=== PATIENT | female | born 1985 | race African-American/Black ===

== ENCOUNTER 2017-06-10 10:11 | Emergency (ER) | payer MEDICAID ==
--- NOTE | 2017-06-10 10:22 | ER Document Report ---
ED GI/ - General Chief Complaint: Abdominal Pain Stated Complaint: ABDOMINAL PAIN Time Seen by Provider: 06/10/17 10:20 Mode of Arrival: Ambulatory Information source: Patient Notes: 31-year-old female complaining of left-sided abdominal pain either upper or lower intermittently since , 3.5/5 now. She found out recently that she was at [facility].. LMP second week of April. . No vomiting or diarrhea today. No fever. No dysuria. No vaginal bleeding. States that she has more heartburn with this than her other 3. TRAVEL OUTSIDE OF THE [place] 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 Renal/ Medical History: Denies: Hx Peritoneal Dialysis Past Surgical History: Reports: Hx Section - x 1 Review of Systems - Review of Systems Constitutional: No symptoms reported EENT: No symptoms reported Cardiovascular: No symptoms reported Respiratory: No symptoms reported Gastrointestinal: See HPI Genitourinary: No symptoms reported Female Genitourinary: No symptoms reported Musculoskeletal: No symptoms reported Skin: No symptoms reported Hematologic/Lymphatic: No symptoms reported Neurological/Psychological: No symptoms reported Physical Exam - Vital signs Vitals: Temp Pulse Resp BP Pulse Ox 97.9 F 89 18 140/79 H 96 06/10/17 10:15 06/10/17 10:15 06/10/17 10:15 06/10/17 10:15 06/10/17 10:15 Interpretation: Normal - General General appearance: Appears well, Alert - HEENT Head: Normocephalic, Atraumatic Eyes: Normal Conjunctiva: Normal Pupils: PERRL Mucous membranes: Normal Neck: Supple. No: Lymphadenopathy - Respiratory Respiratory status: No respiratory distress Chest status: Nontender Breath sounds: Normal Chest palpation: Normal - Cardiovascular Rhythm: Regular Heart sounds: Normal auscultation Murmur: No - Abdominal Inspection: Normal Distension: No distension Bowel sounds: Normal Tenderness: Nontender. No: Tender Organomegaly: No organomegaly. No: Hepatomegaly, Splenomegaly - Back Back: Normal, Nontender. No: CVA tenderness - Extremities General upper extremity: Normal inspection, Nontender, Normal color, Normal ROM , Normal temperature General lower extremity: Normal inspection, Nontender, Normal color, Normal ROM , Normal temperature, Normal weight bearing. No: Juan Pablo's sign - Neurological Neuro grossly intact: Yes Cognition: Normal Orientation: AAOx4 [place] Coma Scale Eye Opening: Spontaneous Liliane Coma Scale Verbal: Oriented Liliane Coma Scale Motor: Obeys Commands [place] Coma Scale Total: 15 Speech: Normal Motor strength normal: LUE, RUE, LLE, RLE Sensory: Normal - Psychological Associated symptoms: Normal affect, Normal mood - Skin Skin Temperature: Warm Skin Moisture: Dry Skin Color: Normal Skin irregularity: negative: Rash Course - Re-evaluation Re-evalutation: 06/10/17 12:31 no pelvic or abdominal pain, nausea gone with the reglan. manual bp 103/57 06/10/17 12:31 06/10/17 12:32 - Vital Signs Vital signs: Temp Pulse Resp BP Pulse Ox 97.9 F 89 18 103/57 L 96 06/10/17 10:15 06/10/17 10:15 06/10/17 10:15 06/10/17 10:53 06/10/17 10:15 - Laboratory Result Diagrams: 06/10/17 10:45 06/10/17 10:45 Laboratory results interpreted by me: 06/10/17 06/10/17 10:45 10:45 RDW 15.4 H Beta HCG, Quant 421315.00 H Discharge - Discharge Clinical Impression: Nausea, Early stage of , Resolved abdominal pain Condition: Good Disposition: HOME, SELF-CARE Instructions: Abdominal Pain ([facility]), ([facility]), Pelvic Pain in ( [facility]), Nausea or Vomiting, Nonspecific ([facility]), [facility] ([facility]) , [facility] [place] Additional Instructions: return to er if any concerns, vaginal bleeding, pelvic pain reglan can be taken for the nausea see the health department Please complete the patient satisfaction survey if you get one, and return it.. If you do not receive a survey, then you can go to the [facility] website, [email or web address] and place your comments about your very good care. Thank you very much. It was a pleasure being your medical provider today. Prescriptions: Metoclopramide HCl [Reglan 10 mg Tablet] 10 mg PO QIDP PRN #30 tablet PRN Reason:
[2017-06-10 10:54] VITALS: BP 103/57
[2017-06-10 11:03] LABS: AMORPHOUS SEDIMENT,URINE TRACE /HPF; APPEARANCE,URINE SLIGHTLY-CLOUDY; BILIRUBIN,URINE NEGATIVE (NEGATIVE); GLUCOSE, URINE NEGATIVE (NEGATIVE); KETONES,URINE NEGATIVE (NEGATIVE); LEUKOCYTE ESTERASE,URINE NEGATIVE (NEGATIVE); NITRITE,URINE NEGATIVE (NEGATIVE); PROTEIN,URINE NEGATIVE (NEGATIVE); URINE SPECIFIC GRAVITY 1.024; UROBILINOGEN,URINE NEGATIVE mg/dL (<2.0)
[2017-06-10] MEDS ORDERED: METOCLOPRAMIDE HCL 10 MG TABLET PO ONE (11:09)
[2017-06-10 11:10] LABS: ABSOLUTE BASOPHILS # (AUTO) 0.1 10^3/uL (0.0-0.2); ABSOLUTE EOSINOPHILS # (AUTO) 0.1 10^3/uL (0.0-0.6); ABSOLUTE LYMPHOCYTES (AUTO) 1.7 10^3/uL (0.5-4.7); ABSOLUTE MONOCYTES (AUTO) 0.8 10^3/uL (0.1-1.4); ABSOLUTE NEUT (AUTO) 4.5 10^3/uL (1.7-8.2); BASOPHILS % (AUTO) 0.9 % (0-2); EOSINOPHILS % (AUTO) 1.6 % (0-6); HEMATOCRIT 39.2 % (36.0-47.0); HEMOGLOBIN 13.2 g/dL (12.0-15.5); HGB HCT DIFFERENCE 0.4; LYMPHOCYTES % (AUTO) 23.8 % (13-45); MEAN CORPUSCULAR HEMOGLOBIN 28.2 pg (27.0-33.4); MEAN CORPUSCULAR HGB CONC 33.8 g/dL (32.0-36.0); MEAN CORPUSCULAR VOLUME 84 fl (80-97); MONOCYTES % (AUTO) 10.7 % (3-13); RED BLOOD COUNT 4.69 10^6/uL (3.72-5.28); RED CELL DISTRIBUTION WIDTH 15.4 % (11.5-14.0); WHITE BLOOD COUNT 7.1 10^3/uL (4.0-10.5)
[2017-06-10 11:15] LABS: ALANINE AMINOTRANSFERASE 24 U/L (9-52); ALBUMIN 4.1 g/dL (3.5-5.0); ALKALINE PHOSPHATASE 62 U/L (38-126); ANION GAP 12 (5-19); ASPARTATE AMINO TRANSFERASE 19 U/L (14-36); BILIRUBIN,DIRECT 0.3 mg/dL (0.0-0.4); BILIRUBIN,TOTAL 0.6 mg/dL (0.2-1.3); BLOOD UREA NITROGEN 8 mg/dL (7-20); CARBON DIOXIDE 22 mmol/L (22-30); CHLORIDE 105 mmol/L (98-107); CREATININE RESULT 0.65 mg/dL (0.52-1.25); GLUCOSE 93 mg/dL (75-110); LIPASE 34.5 U/L (23-300); POTASSIUM 3.9 mmol/L (3.6-5.0); SODIUM 138.5 mmol/L (137-145)
== END 2017-06-10 12:53 | disposition home or self-care (01) ==
LOC: ER 10:11
DX: R11.0 Nausea (principal); R10.9 Unspecified abdominal pain; Z3A.00 Weeks of gestation of pregnancy not specified
CPT/HCPCS: 99284; 36415; 87086; 84702; 83690; 85025; 87088; 80053; 81001; 87186; J3490

== ENCOUNTER 2017-07-09 19:49 | Emergency (ER) | payer MEDICAID ==
[2017-07-09] MEDS ORDERED: ONDANSETRON HCL INJ/PF 4 MG/2 ML SDV IV ONE ×2 (20:10→21:58)
[2017-07-09] MEDS ORDERED: MORPHINE SULFATE 10 MG/ML INJ IV ONE ×2 (20:10→21:58)
--- NOTE | 2017-07-09 20:13 | ER Document Report ---
ED GI/ - General Chief Complaint: Vaginal Bleeding Stated Complaint: VAGINAL BLEEDING Time Seen by Provider: 07/09/17 20:05 Notes: Patient is a 31-year-old female, at 8 weeks gestation by last menstrual period, but comes emergency department for chief complaint of heavy vaginal bleeding that started just prior to arrival. She has now passed a large amount of tissue. She reports cramping, she denies dizziness or lightheadedness. She denies passing out. She is not on any daily medications. [facility] but has not had an ultrasound yet. TRAVEL OUTSIDE OF THE [place] IN LAST 30 DAYS: No - Related Data Allergies/Adverse Reactions: blueberry Allergy (Verified 07/09/17 21:19) pollen extracts Allergy (Verified 07/09/17 21:19) Home Medications: Current Home Medications No122/Iron/Folic Acid [ Multi Tablet] 1 each PO DAILY 07/09/17 [History] Past Medical History - General Information source: Patient - Social History Smoking Status: Never Smoker Frequency of alcohol use: None Drug Abuse: None Lives with: Family Family History: Reviewed & Not Pertinent - Medical History Medical History: Negative Renal/ Medical History: Denies: Hx Peritoneal Dialysis Past Surgical History: Reports: Hx Section - x 1 - Immunizations Hx Diphtheria, Pertussis, Tetanus Vaccination: Yes Review of Systems - Review of Systems Constitutional: No symptoms reported EENT: No symptoms reported Cardiovascular: See HPI Respiratory: No symptoms reported Gastrointestinal: No symptoms reported Genitourinary: No symptoms reported Female Genitourinary: See HPI Musculoskeletal: No symptoms reported Skin: No symptoms reported Hematologic/Lymphatic: No symptoms reported Neurological/Psychological: No symptoms reported Physical Exam - Vital signs Vitals: Temp Pulse Resp BP Pulse Ox 98.1 F 93 16 141/91 H 99 07/09/17 19:56 07/09/17 19:56 07/09/17 19:56 07/09/17 19:56 07/09/17 19:56 Interpretation: Normal - General General appearance: Appears well, Alert In distress: None - HEENT Head: Normocephalic, Atraumatic Eyes: Normal Pupils: PERRL - Respiratory Respiratory status: No respiratory distress Chest status: Nontender Breath sounds: Normal Chest palpation: Normal - Cardiovascular Rhythm: Regular. No: Tachycardia Heart sounds: Normal auscultation, S1 appreciated, S2 appreciated Murmur: No - Abdominal Inspection: Normal Distension: No distension Bowel sounds: Normal Tenderness: Nontender. No: Tender, Guarding Organomegaly: No organomegaly - Genitourinary External exam: Normal Speculum exam: Cervix open, Products of conception Vaginal bleeding: Heavy - Back Back: Normal, Nontender - Extremities General upper extremity: Normal inspection, Nontender, Normal color, Normal ROM , Normal temperature General lower extremity: Normal inspection, Nontender, Normal color, Normal ROM , Normal temperature, Normal weight bearing. No: Juan Pablo's sign - Neurological Neuro grossly intact: Yes Cognition: Normal Orientation: AAOx4 Liliane Coma Scale Eye Opening: Spontaneous [place] Coma Scale Verbal: Oriented [place] Coma Scale Motor: Obeys Commands Liliane Coma Scale Total: 15 Speech: Normal Motor strength normal: LUE, RUE, LLE, RLE Sensory: Normal - Psychological Associated symptoms: Normal affect, Normal mood - Skin Skin Temperature: Warm Skin Moisture: Dry Skin Color: Normal Course - Re-evaluation Re-evalutation: On initial evaluation patient is alert and well-appearing but she is bleeding heavily and she passed a large amount of tissue on the bed and on the floor. I did not see any tissue in the initial tissue passage. Patient is not tachycardic. Hemoglobin checked, it is decreased from prior but is still stable. Patient was given initial pain medication, this appeared to help her significantly. On reevaluation discussed with patient, requested more pain medication. This was given to her. RhoGam is not indicated. HCG has significantly downtrending consistent with miscarriage. Unfortunately patient stood up on her own randomly after being given pain medication doses, she did become pale, she slumped down onto the floor, I ran into and caught her and she did not hit her head, she slumped onto her buttocks on the floor. She quickly regained consciousness on her own, she was placed on the bed, she was given IV fluid boluses. She was mildly hypotensive at the time of syncope. Blood pressure has returned to normal, patient has returned to her normal alert self on reevaluation. Pelvic exam was performed, tissue was removed from the vaginal vault questionable for fetus. No additional debris was located in the cervix, cervix open. Afterwards bleeding did significantly decrease. I discussed with patient , patient states that she does not want any tissue testing performed, unfortunately passed products and blood products were placed in the same been and I was unable to locate what had appeared to be the fetus initially, after a search patient states she does not want this and declined additional testing or searching. I called and spoke with Dr. Winn, [facility] on-call, he recommends patient can be discharged home at this time with return precautions and close follow-up recommendations. I discussed this with patient, she states that she definitely is ready to leave, she states she will return if she worsens in any way. - Vital Signs Vital signs: Temp Pulse Resp BP Pulse Ox 98.1 F 88 20 106/58 L 98 07/09/17 21:34 07/10/17 01:45 07/10/17 01:45 07/10/17 00:31 07/10/17 01:45 - Laboratory Result Diagrams: 07/09/17 20:45 Laboratory results interpreted by me: 07/09/17 07/09/17 20:45 20:45 Hct 35.7 L RDW 14.8 H Beta HCG, Quant 1238.80 H Discharge - Discharge Clinical Impression: Miscarriage Condition: Stable Disposition: HOME, SELF-CARE Additional Instructions: Your exam and laboratory workup indicates a miscarriage. It appears you have passed the fetus here tonight. You will have some additional bleeding and cramping at home to complete the miscarriage. Take the pain medication if needed. I have spoken with Dr. Winn ([facility] Eugenia garcia). Follow up with [facility] tomorrow (call the office tomorrow morning). Return to the ED for any concerning symptoms - dizziness, passing out, severe pain, etc. Prescriptions: Morphine Sulfate [Morphine Ir 15 Mg Tablet] 15 mg PO Q4HP PRN #10 tablet PRN Reason: Forms: Return to Work Referrals: ADELFO WINN MD [ACTIVE STAFF] - Follow up tomorrow
[2017-07-09 21:02] LABS: ABSOLUTE EOSINOPHILS # (AUTO) 0.2 10^3/uL (0.0-0.6); ABSOLUTE LYMPHOCYTES (AUTO) 1.8 10^3/uL (0.5-4.7); ABSOLUTE MONOCYTES (AUTO) 0.7 10^3/uL (0.1-1.4); ABSOLUTE NEUT (AUTO) 3.2 10^3/uL (1.7-8.2); BASOPHILS % (AUTO) 0.8 % (0-2); EOSINOPHILS % (AUTO) 2.9 % (0-6); HEMATOCRIT 35.7 % (36.0-47.0); HGB HCT DIFFERENCE 0.3; LYMPHOCYTES % (AUTO) 30.2 % (13-45); MEAN CORPUSCULAR HGB CONC 33.7 g/dL (32.0-36.0); MEAN CORPUSCULAR VOLUME 83 fl (80-97); MONOCYTES % (AUTO) 11.3 % (3-13); RED BLOOD COUNT 4.29 10^6/uL (3.72-5.28); RED CELL DISTRIBUTION WIDTH 14.8 % (11.5-14.0); SEGMENTED NEUTROPHILS % (AUTO) 54.8 % (42-78); WHITE BLOOD COUNT 5.9 10^3/uL (4.0-10.5)
[2017-07-09] MEDS ORDERED: NORMAL SALINE 1000 ML 1,000 ML IV ONE ×2 (22:42→23:04)
[2017-07-10] MEDS ORDERED: HYDROCODONE/ACETAMINOPHEN 5-325 MG 6 TAB/DSPK PO PRN (01:05)
[2017-07-10 01:45] VITALS: BP 106/58
== END 2017-07-10 01:45 | disposition home or self-care (01) ==
LOC: ER 19:49
DX: O03.9 Complete or unspecified spontaneous abortion without complication (principal); O46.91 Antepartum hemorrhage, unspecified, first trimester; R10.9 Unspecified abdominal pain; R10.2 Pelvic and perineal pain; Z3A.08 8 weeks gestation of pregnancy
CPT/HCPCS: 96376; 99284; 96361; 96374; 96375; 86900; 86901; 36415; 86850; 84702; 85025; J2270; J2405; J7030

== ENCOUNTER → 2018-07-03 | Outpatient (CLI) | payer MEDICAID ==
--- NOTE | 2018-07-03 15:56 | RADIOLOGY REPORT (SQ) ---
EXAM DESCRIPTION: U/S [id number] TRNABD 1GES W/ODOP COMPLETED DATE/TIME: 07/03/2018 3:30 pm REASON FOR STUDY: Z34.81 ENCOUNTER FOR SUPRVSN OF NORMAL , FIRST TRIMESTER Z34.81 ENCOUNTE R FOR SUPRVSN OF NORMAL , FIRST TRIM COMPARISON: None. TECHNIQUE: Transabdominal static and realtime grayscale images acquired of the pelvis. Additional se lected spectral and color Doppler images recorded. All images stored on PACs. bHCG: Not available CLINICAL DATES: Last menses 05/15/2018 LIMITATIONS: None. FINDINGS: FETUS: Single Living intrauterine . ULTRASOUND EGA: 9 weeks 4 days ULTRASOUND PETERSON: 02/01/2019 EFW: Not applicable less than 20 weeks. CRL: 2.7 cm generates an estimated age of 9 weeks 4 days FHR: 165 beats per minute. SURVEY: Too early to assess. AMNIOTIC FLUID: Adequate amount. PLACENTA: Not yet developed due to early gestation. SUBCHORIONIC BLEED: No SIZE OF BLEED: Not applicable. UTERUS: No masses. No anomalies. Uterus is 9.4 x 5.4 x 6.4 cm CERVICAL LENGTH: Closed, 4.8 cm in length RIGHT ADNEXA: Not visualized due to bowel gas/poor acoustic window LEFT ADNEXA: Not visualized due to bowel gas/poor acoustic window FREE FLUID: None. OTHER: No other significant finding. IMPRESSION: LIVING INTRAUTERINE . EGA 9 weeks 4 days, estimated due date 02/01/2019 Trimester of : First - 0 to 13 weeks. TECHNICAL DOCUMENTATION: JOB ID: [id number] [employer]- All Rights Reserved Reading location - IP/workstation name: [facility]
== END ==
LOC: RAD 16:34
PROVIDERS: ATTEND Nurse Practitioner
DX: Z34.81 Encounter for supervision of other normal pregnancy, first trimester (principal)
CPT/HCPCS: 76801

== ENCOUNTER 2019-01-27 15:07 | Outpatient (CLI) | payer MEDICAID ==
[2019-01-27 16:15] LABS: APPEARANCE,URINE SLIGHTLY-CLOUDY; BILIRUBIN,URINE NEGATIVE (NEGATIVE); COLOR,URINE YELLOW; GLUCOSE, URINE NEGATIVE (NEGATIVE); KETONES,URINE NEGATIVE (NEGATIVE); LEUKOCYTE ESTERASE,URINE NEGATIVE (NEGATIVE); NITRITE,URINE NEGATIVE (NEGATIVE); PROTEIN,URINE NEGATIVE (NEGATIVE); UROBILINOGEN,URINE NEGATIVE mg/dL (<2.0)
--- NOTE | 2019-01-27 16:25 | Non Stress Test Report ---
Non Stress Test Datetime Report Generated by CPN: 01/27/2019 16:25 DEMOGRAPHIC EGA NST: 40.0 INDICATION Indication for Study: Ordered by Provider URINE RESULTS Urine Protein, NST: Negative Urine Blood - NST: Positive MONITORING Monitor Explained: Monitor Explained; Test Explained; Patient Verbalized Understanding Time on Monitor: 01/27/2019 15:28 Time off Monitor: 01/27/2019 16:18 NST Duration: 50 NST INTERVENTIONS NST Interventions: PO Hydration Physician Notified NST: Dr. Agusto BABY A: [id number] BABY A Movement : Present Contraction Frequency : 4-13 FHR Baseline : 130 Accelerations : 15X15 Decelerations : None Variability : Moderate 6-25bpm NST Review: Meets Criteria for Reactive NST NST Review and Verified By : PANKAJ Vázquez NST Results: Reactive NST REPORT Report Trigger: Send Report
[2019-01-27 16:30] LABS: URINE AMPHETAMINES SCREEN NEGATIVE; URINE BARBITURATES SCREEN NEGATIVE; URINE BENZODIAZEPINES SCREEN NEGATIVE; URINE COCAINE SCREEN NEGATIVE; URINE MARIJUANA (THC) SCREEN NEGATIVE; URINE METHADONE SCREEN NEGATIVE; URINE PHENCYCLIDINE SCREEN NEGATIVE
== END 2019-01-27 16:28 | disposition home or self-care (01) ==
LOC: LC 15:07
PROVIDERS: ATTEND Obstetrics & Gynecology
PROC: 4A1HXCZ Monitoring of Products of Conception, Cardiac Rate, External Approach (ICD-10-PCS; principal; 2019-01-27)
DX: O47.1 False labor at or after 37 completed weeks of gestation (principal); Z3A.40 40 weeks gestation of pregnancy
CPT/HCPCS: 59025; 80307; 81005

== ENCOUNTER 2019-02-03 21:41 | Inpatient (IN) | payer MEDICAID ==
[2019-02-03 22:14] LABS: APPEARANCE,URINE TURBID; BILIRUBIN,URINE NEGATIVE (NEGATIVE); GLUCOSE, URINE NEGATIVE (NEGATIVE); KETONES,URINE NEGATIVE (NEGATIVE); LEUKOCYTE ESTERASE,URINE TRACE (NEGATIVE); NITRITE,URINE NEGATIVE (NEGATIVE); PROTEIN,URINE 100 mg/dL (NEGATIVE); URINE SPECIFIC GRAVITY 1.013; UROBILINOGEN,URINE NEGATIVE mg/dL (<2.0)
[2019-02-03 22:16] LABS: COLOR,URINE YELLOW
[2019-02-03] MEDS ORDERED: OXYTOCIN/NORMAL SALINE 20 UNIT/1,000 ML RTUINJ IV PRN (22:18)
[2019-02-03] MEDS ORDERED: MISOPROSTOL 0.2 MG TABLET ONE (22:30)
[2019-02-03] MEDS ORDERED: OXYTOCIN 10 UNIT/ML VIAL ONE (22:30)
[2019-02-03] MEDS ORDERED: OXYTOCIN/NORMAL SALINE 0 UNIT/0 ML RTUINJ ONE (22:31)
[2019-02-03] MEDS ORDERED: LIDOCAINE 1% INJ-PF (10 MG/ML) 30 ML SDV ONE (22:31)
[2019-02-03] MEDS: RINGERS SOLUTION,LACTATED 1,000 ML IV PRN ×2 (22:36→23:13)
[2019-02-03 22:42] LABS: URINE AMPHETAMINES SCREEN NEGATIVE; URINE BARBITURATES SCREEN NEGATIVE; URINE BENZODIAZEPINES SCREEN NEGATIVE; URINE COCAINE SCREEN NEGATIVE; URINE MARIJUANA (THC) SCREEN NEGATIVE; URINE METHADONE SCREEN NEGATIVE; URINE PHENCYCLIDINE SCREEN NEGATIVE
[2019-02-03 22:48] LABS: ABSOLUTE LYMPHOCYTES (AUTO) 1.3 10^3/uL (0.5-4.7); ABSOLUTE MONOCYTES (AUTO) 0.6 10^3/uL (0.1-1.4); ABSOLUTE NEUT (AUTO) 3.8 10^3/uL (1.7-8.2); BASOPHILS % (AUTO) 0.6 % (0-2); EOSINOPHILS % (AUTO) 0.8 % (0-6); HEMATOCRIT 37.7 % (36.0-47.0); HEMOGLOBIN 12.3 g/dL (12.0-15.5); LYMPHOCYTES % (AUTO) 22.7 % (13-45); MEAN CORPUSCULAR HEMOGLOBIN 26.6 pg (27.0-33.4); MEAN CORPUSCULAR HGB CONC 32.7 g/dL (32.0-36.0); MEAN CORPUSCULAR VOLUME 81 fl (80-97); PLATELET COUNT 298 10^3/uL (150-450); RED BLOOD COUNT 4.63 10^6/uL (3.72-5.28); RED CELL DISTRIBUTION WIDTH 16.4 % (11.5-14.0); SEGMENTED NEUTROPHILS % (AUTO) 64.9 % (42-78); TOTAL CELLS COUNTED % (AUTO) 100 %; WHITE BLOOD COUNT 5.8 10^3/uL (4.0-10.5)
[2019-02-03] MEDS ORDERED: RINGERS SOLUTION,LACTATED 300 ML IV ONE (23:00)
[2019-02-03] MEDS ORDERED: EPHEDRINE SULFATE INJ 50 MG/1 ML AMPULE ONE (23:05)
[2019-02-03] MEDS ORDERED: FENTANYL/BUPIVACAINE/NS/PF 300 MCG/150 ML RTUINJ EPI ONE (23:05)
[2019-02-03] MEDS ORDERED: BUPIVACAINE HCL 0.25 % INJ/PF (2.5 MG/1 ML) 30 ML VIAL ONE (23:05)
[2019-02-04] MEDS: RINGERS SOLUTION,LACTATED 1,000 ML IV PRN (00:40)
--- NOTE | 2019-02-04 03:38 | Admission Physical ---
Datetime Report Generated by CPN: 02/04/2019 03:37 CURRENT ADMISSION Chief Complaint: Uterine Contractions Indication for Induction: Not Applicable Admit Impression : Term, Intrauterine Admit Plan: Initiate Labor Protocol ALLERGIES Medication Allergies: No Medication Allergies: pollen extracts (02/03/2019); blueberry (02/03/2019) Latex: No Latex Allergies Food Allergies: blueberries Environmental Allergies: POLLEN OBSTETRICAL HISTORY EDC: 01/27/2019 00:00 : 5 Para: 3 Term: 3 : 0 SAB: 0 IAB: 0 Ectopic: 0 Livin Cesareans: 1 VBACs: 2 Multiple Births: 0 Gestational Diabetes: No Rh Sensitization: No Incompetent Cervix: No TURNER: No Infertility: No ART Treatment: No Uterine Anomaly: No IUGR: No Hx Previous C/S: Yes Macrosomia: No Hx Loss/Stillborn: No PIH: No Hx : No Placenta Previa/Abruption: No Depression/PP Depression: No PTL/PROM: No Post Hemorrhage: No Current Procedures: Ultrasound Obstetrical History Comments: G1 - 2004, C/S, girl, 40 weeks G2 - 2008, , girl, 40 weeks G3 - 2011, , girl, 40 weeks G4 - 2017, SAB, 8 weeks G5 - Current SEE RECORDS Alcohol: No Marijuana : No Cocaine: No Other Illicit Drugs: No Cigarettes: Never Smoker. 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 Surgery: No Heart Disease: No Hosp/Surgery: Yes Autoimmune Disorder: No Anesthetic Complications: No Kidney Disease: No Abnormal Pap Smear: No Neuro/Epilepsy: No Psychiatric Disorders: No Other Medical Diseases: No Hepatitis/Liver Disease: No Significant Family History: No Varicosities/Phlebitis: No Trauma/Violence : No Thyroid Dysfunction: No Medical History Comments: C/S INFECTIOUS HISTORY Gonorrhea: No Genital Herpes: No Chlamydia: No Tuberculosis: No Syphilis: No Hepatitis: No HIV/AIDS Exposure: No Rash or Viral Illness: No HPV: No PHYSICAL EXAM General: Normal HEENT: Normal Neurologic: Normal Thyroid: Normal Heart: Normal Lungs: Normal Breast: Deferred Back: Normal Abdomen: Normal Genitourinary Exam: Normal Extremities: Normal DTRs: Normal Pelvic Type: Adequate FETUS A EGA: 41.1 PLANS FOR LABOR AND DELIVERY Labor and Delivery: None Pain Management: Epidural Feeding Preference: Breast Benefit of Breast Feed Discussed: Yes Circumcision: Yes INFORMED CONSENT Signature: with User ID: [email or web address]
[2019-02-04] MEDS ORDERED: PROMETHAZINE HCL 25 MG SUPP.RECT PR PRN (04:32)
[2019-02-04] MEDS ORDERED: PSEUDOEPHEDRINE HCL 30 MG TABLET PO PRN (04:32)
[2019-02-04] MEDS ORDERED: PROMETHAZINE HCL INJ 25 MG/1 ML VIAL IV PRN (04:32)
[2019-02-04] MEDS ORDERED: PROMETHAZINE HCL 25 MG TABLET PO PRN (04:32)
[2019-02-04] MEDS ORDERED: MEASLES,MUMPS&RUBELLA VACC/PF 0.5 ML VIAL SUBCUT PRN (04:32)
[2019-02-04] MEDS ORDERED: GLYCERIN/WITCH HAZEL LEAF 1 EACH MED..WIPE TP PRN (04:32)
[2019-02-04] MEDS ORDERED: ACETAMINOPHEN 650 MG SUPP.RECT PR PRN (04:32)
[2019-02-04] MEDS ORDERED: DIPH/PERTUSS(ACELL)/TETANUS VAC/PF 0.5 ML SYR (>=10YO) IM PRN (04:32)
[2019-02-04] MEDS ORDERED: DIBUCAINE 1% OINTMENT 56 GM TP PRN (04:32)
[2019-02-04] MEDS ORDERED: ACETAMINOPHEN WITH CODEINE #3 TABLET PO PRN (04:32)
[2019-02-04] MEDS ORDERED: MAGNESIUM HYDROXIDE SUSP 30 ML UDCUP PO PRN (04:32)
[2019-02-04] MEDS ORDERED: OXYTOCIN/NORMAL SALINE 20 UNIT/1,000 ML RTUINJ IV PRN (04:32)
[2019-02-04] MEDS ORDERED: NA PHOS,M-B/NA PHOS,DI-BA (ADULT) 133 ML ENEMA PR PRN (04:32)
[2019-02-04] MEDS ORDERED: DIPHENHYDRAMINE HCL 25 MG CAPSULE PO PRN (04:32)
[2019-02-04] MEDS ORDERED: BENZOCAINE/MENTHOL AEROSOL SPRAY 56 ML TOP PRN (04:32)
[2019-02-04] MEDS ORDERED: ZOLPIDEM TARTRATE 5 MG TABLET PO PRN (04:32)
[2019-02-04] MEDS ORDERED: IBUPROFEN 800 MG TABLET ONE (05:18)
[2019-02-04] MEDS: IBUPROFEN 800 MG TABLET PO SCH ×3 (05:19→21:43)
[2019-02-04] MEDS: FAMOTIDINE 20 MG TABLET PO SCH ×2 (09:57→21:42)
[2019-02-04] MEDS: PRENATAL VITAMIN W DHA CAPSULE PO SCH (09:57)
[2019-02-04] MEDS: SENNOSIDES/DOCUSATE 8.6-50 MG 1 EACH TABLET PO SCH (09:57)
[2019-02-04] MEDS: DOCUSATE SODIUM 100 MG CAPSULE PO SCH ×2 (09:57→18:06)
[2019-02-04] MEDS: FERROUS SULFATE 325 MG TABLET PO SCH ×2 (09:57→18:06)
[2019-02-05 06:21] LABS: HEMATOCRIT 33.8 % (36.0-47.0); HEMOGLOBIN 11.2 g/dL (12.0-15.5); MEAN CORPUSCULAR HGB CONC 33.1 g/dL (32.0-36.0); MEAN CORPUSCULAR VOLUME 82 fl (80-97); PLATELET COUNT 260 10^3/uL (150-450); RED BLOOD COUNT 4.13 10^6/uL (3.72-5.28); RED CELL DISTRIBUTION WIDTH 16.5 % (11.5-14.0)
[2019-02-05] MEDS: IBUPROFEN 800 MG TABLET PO SCH ×3 (06:39→22:57)
[2019-02-05] MEDS: DOCUSATE SODIUM 100 MG CAPSULE PO SCH ×2 (09:26→17:55)
[2019-02-05] MEDS: SENNOSIDES/DOCUSATE 8.6-50 MG 1 EACH TABLET PO SCH (09:26)
[2019-02-05] MEDS: FAMOTIDINE 20 MG TABLET PO SCH ×2 (09:26→22:57)
[2019-02-05] MEDS: FERROUS SULFATE 325 MG TABLET PO SCH ×2 (09:26→17:55)
[2019-02-05] MEDS: PRENATAL VITAMIN W DHA CAPSULE PO SCH (09:26)
--- NOTE | 2019-02-05 09:36 | PDOC PROGRESS REPORT ---
Subjective-OB Progress Note for:: 02/05/19 Subjective: Doing well, no c/o, family at BS, eating bkf, Physical Exam (OB) Vital Signs: Temp Pulse Resp BP Pulse Ox 98.4 F 73 16 104/59 L 99 02/05/19 08:21 02/05/19 08:21 02/05/19 08:21 02/05/19 08:21 02/05/19 08:21 Intake & Output 02/04/19 02/05/19 02/06/19 06:59 06:59 06:59 Intake Total 258 200 Balance 258 200 Weight 119.4 kg - PIH/Pre-Eclampsia Clonus: Negative Headache: Absent Epigastric Pain: No Visual Changes: No - Lochia Lochia Amount: Scant < 10 ml Lochia Color: Rubra/Red - Abdomen Description: Soft, Round Hernia Present: No Fundal Description: Firm, Midline Fundal Height: u/u - u/2 Objective-Diagnostic Laboratory: 02/05/19 05:53 02/05/19 05:53 WBC 8.0 RBC 4.13 Hgb 11.2 L Hct 33.8 L MCV 82 MCH 27.0 MCHC 33.1 RDW 16.5 H Plt Count 260 Assessment and Plan(PN) - Assessment and Plan (1) Vaginal after , delivered, current hospitalization Is this a current diagnosis for this admission?: Yes - Time Spent with Patient Time with patient: Less than 15 minutes Medications reviewed and adjusted accordingly: Yes - Disposition Anticipated Discharge: Home Within: within 24 hours
[2019-02-06] MEDS: IBUPROFEN 800 MG TABLET PO SCH ×2 (05:31→14:55)
[2019-02-06 08:53] VITALS: BP 123/70
[2019-02-06] MEDS: FERROUS SULFATE 325 MG TABLET PO SCH ×2 (09:14→17:39)
[2019-02-06] MEDS: DOCUSATE SODIUM 100 MG CAPSULE PO SCH ×2 (09:14→17:39)
[2019-02-06] MEDS: FAMOTIDINE 20 MG TABLET PO SCH (09:14)
[2019-02-06] MEDS: PRENATAL VITAMIN W DHA CAPSULE PO SCH (09:14)
[2019-02-06] MEDS: SENNOSIDES/DOCUSATE 8.6-50 MG 1 EACH TABLET PO SCH (09:14)
--- NOTE | 2019-02-06 11:39 | PDOC DISCHARGE SUMMARY ---
Final Diagnosis Discharge Date: 02/06/19 Discharge Data - Discharge Medication Prescriptions: Acetaminophen with Codeine [Tylenol #3 Tablet] 1 each PO Q4HP PRN #20 tablet PRN Reason: For Pain Scale 3-5 Ibuprofen [Motrin 800 mg Tablet] 800 mg PO Q8HP PRN #30 tablet PRN Reason: Abdominal Cramping Docusate Sodium [Colace 100 mg Capsule] 100 mg PO BID #60 capsule Home Medications: No122/Iron/Folic Acid [ Multi Tablet] 1 each PO DAILY 07/09/17 Acetaminophen with Codeine [Tylenol #3 Tablet] 1 each PO Q4HP PRN #20 tablet 02/06/19 Docusate Sodium [Colace 100 mg Capsule] 100 mg PO BID #60 capsule 02/06/19 Ibuprofen [Motrin 800 mg Tablet] 800 mg PO Q8HP PRN #30 tablet 02/06/19 Reason(s) for Admission: Onset of Labor, Procedures: NST, Ultrasound Intrapartum Procedure(s): Spontaneous Vaginal Delivery - Diagnosis Test Laboratory: Temp Pulse Resp BP Pulse Ox 98.2 F 73 16 123/70 100 02/06/19 08:18 02/06/19 08:18 02/06/19 08:18 02/06/19 08:18 02/06/19 08:18 02/03/19 02/03/19 02/05/19 21:58 22:30 05:53 RBC 4.63 4.13 Hgb 12.3 11.2 L Hct 37.7 33.8 L Urine Opiates Screen NEGATIVE - Discharge information/Instructions Discharge Activity: Activity As Tolerated, Balance Activity w/Rest, No Driving, No Lifting Over 10 Pounds, Pelvic Rest, No tub bath, Walk Frequently Discharge Diet: As Tolerated, Regular Disposition: HOME, SELF-CARE Follow up with: [facility] in: 5, Weeks
--- NOTE | 2019-02-19 08:49 | Delivery Summary ---
Del Sum A-C Datetime Report Generated by CPN: 02/19/2019 08:49 DELIVERY PERSONNEL DELIVERY PERSONNEL: [id number] Delivery Doctor:: Gabriel Dawson MD Labor and Delivery Nurse:: Mirian Ha RNraking machine operator Nurse:: Stephanie Calixto RN Nursery Nurse:: Kellie Carrion RN Nursery Nurse:: Danielle Gaffney RN Computer Technical Specialist/HEALTH CENTER ASSISTANT: Ting Watts, ST MATERNAL INFORMATION Delivery Anesthesia: Epidural Medications After Delivery: Pitocin Drip 20 Units/1000ml NSS Maternal Complications: None Complication Details: LABOR SUMMARY EDC: 01/27/2019 00:00 No. Babies in Womb: 1 Attempted: Yes Labor Anesthesia: Epidural LABOR INFORMATION Reason for Induction: Not Applicable Onset of Labor: 02/03/2019 23:20 Oxytocin: N/A Group B Beta Strep: Negative Antibiotics # of Doses: 0 Steroids Given: None Reason Steroids Not Administered: Not Applicable MEMBRANES Membranes Rupture Method: Spontaneous Rupture of Membranes: 02/03/2019 21:20 Length of Rupture (hr): 7.03 Amniotic Fluid Color: Moderate Meconium Amniotic Fluid Amount: Small Amniotic Fluid Odor: Normal STAGES OF LABOR Stage 3 hr: 0 Stage 3 min: 3 Total Time in Labor hr: 5 Total Time in Labor min: 5 VAGINAL DELIVERY Episiotomy: None Laceration #1: None Laceration Extension #1: N/A Laceration Repair: Not Applicable Sponge Count Correct: N/A Sharps Count Correct: N/A CSECTION DELIVERY Primary Indication: N/A Secondary Indication: N/A CSection Incidence: N/A Labor: N/A Elective: N/A CSection Incision: N/A BABY A INFORMATION Delivery Date/Time: 02/04/2019 04:22 Method of Delivery: Vaginal Method of Delivery: Vaginal Born in Route : No : Successful Forceps: N/A Vacuum Extraction: Successful Shoulder Dystocia : No PRESENTATION/POSITION BABY A Presentation: Cephalic Presentation: Cephalic Presentation: Cephalic Presentation: Cephalic Cephalic Presentation: Vertex Vertex Position: Left Occipital Anterior Breech Presentation: N/A PLACENTA INFORMATION BABY A Placenta Delivery Time : 02/04/2019 04:25 Placenta Method of Delivery: Spontaneous Placenta Status: Delivered SCORES BABY A Heart Rate 1 min: >100 bpm Resp Effort 1 min: Good Cry Reflex Irritability 1 min: Cough or Sneeze or Pulls Away Muscle Tone 1 min: Active Motion Color 1 min: Blue/Pale Resuscitation Effort 1 min: Tactile Stimulation SCORE 1 MIN: 8 Heart Rate 5 min: >100 bpm Resp Effort 5 min: Good Cry Reflex Irritability 5 min: Cough or Sneeze or Pulls Away Muscle Tone 5 min: Active Motion Color 5 min: Body Kerr, Extremities Blue Resuscitation Effort 5 min: N/A SCORE 5 MIN: 9 INFANT INFORMATION BABY A Gestational Age at Delivery: 41.1 Gestational Status: Late Term- 41- 41.6 Weeks Infant Outcome : Liveborn Infant Condition : Stable Sex: Male Sex: Male IDENTIFICATION BABY A Infant Verification Date/Time: 02/04/2019 05:13 ID Band Number: [id number] Mother's Name Verified: Yes Infant RN Verifying Infant: Jacob Ha, RN Additional Verifying Personnel: Pato Luna RN WEIGHT/LENGTH BABY A Infant Birthweight (gm): 3527 Infant Weight (lb): 7 Infant Weight (oz): 12 Length (in): 20.50 Length (cm): 52.07 CORD INFORMATION BABY A No. Cord Vessels: 3 Nuchal Cord : Around Neck x1, Loose Nuchal Cord : Around Neck x1, Loose Cord Blood Taken: Yes-For Storage (Mom's Blood type +) Suction: Mouth ASSESSMENT BABY A Complications: Multiple Late Decels; Multiple Variable Decels; Meconium Physical Findings at Delivery: Within Normal Limits Respirations: Appears Normal Skin to Skin: Yes System Support Technician/ALS Called : No Infant Care By: PANKAJ Carrion Transferred To: Remains with Mother BABY B INFORMATION : N/A SIGNATURES Signature: with User ID: [email or web address]
== END 2019-02-06 18:45 | disposition home or self-care (01) | DRG 807 ==
LOC: LC 21:41 → LR 22:21 → 2N 02-04 08:50
PROVIDERS: ADMIT Obstetrics & Gynecology Gynecology; ATTEND Obstetrics & Gynecology Gynecology
PROC: 10D07Z6 Extraction of Products of Conception, Vacuum, Via Natural or Artificial Opening (ICD-10-PCS; principal; 2019-02-04)
DX: O76 Abnormality in fetal heart rate and rhythm complicating labor and delivery (principal); Z37.0 Single live birth; O69.81X0 Labor and delivery complicated by cord around neck, without compression, not applicable or unspecified; O34.219 Maternal care for unspecified type scar from previous cesarean delivery; O77.0 Labor and delivery complicated by meconium in amniotic fluid; Z3A.41 41 weeks gestation of pregnancy; Z91.018 Allergy to other foods
CPT/HCPCS: 36415; 80307; 81005; 84112; 85025; 85027; 86592; 86850; 86900; 86901; 94760; J2590; J3010; J3490